=== PATIENT | female | born 1990 | race Caucasian/White ===

== ENCOUNTER 2016-08-27 11:56 | Inpatient (IN) | payer OTHER ==
--- NOTE | ~2016-08-27 | PN ---
Unit #: [id number] #: [id number] Patient: ORIN GIBSON [id number] [facility] [address] [place] [address] [id number] I MR#: [id number] NAME: ORIN GIBSON ROOM: [facility] Age: 25 Sex: F Admission Date: 08/27/2016 : 1990 Attending Physician: Shanita Knowles M.D. Admitting Physician: Shanita Knowles M.D. Primary Care Physician: Primary Care Physician Vale CHRISTIE NOTES DATE 08/28/2016 DISCUSSION Ms. Gibson is a 25-year-old white female with mood disorder, who was seen today and chart was reviewed and the case was discussed with the staff. She seemed to be lying in her bed and is anxious, withdrawn , feelings of hopelessness and suicidal ideation. Meanwhile, she has not shown any agitation or aggression. The staff reports that she has been very isolative and seclusive to herself and has not been interacting or socializing. MENTAL STATUS EXAMINATION Young white female, who was casually dressed with a fair personal hygiene, appears to be in no acute distress or discomfort. She was awake and alert on interaction with intact orientation. Her mood was anxious and depressed with a congruent affect. She reports some suicidal ideation, but denies any homicidal ideations. Her insight and judgment remain slightly impaired. TREATMENT PLAN 1. We will continue her on her current medications and treatment protocol and we will monitor her response and make further adjustments as needed. 2. We will continue to follow up. Dictated by... Shanita Knowles M.D. IAA/lucas TD: 08/29/2016 08:42 JOB #: [id number] Unit #: [id number] #: [id number] Patient: ORIN GIBSON PROGRESS NOTES Page 1 of 1 X Shanita Knowles MD PROGRESS NOTE
--- NOTE | ~2016-08-27 | PN ---
Unit #: [id number] #: [id number] Patient: ORIN GIBSON [id number] [facility] [address] [place] [address] [id number] I MR#: [id number] NAME: ORIN GIBSON ROOM: 82 Age: 25 Sex: F Admission Date: 08/27/2016 : 1990 Attending Physician: Shanita Knowles M.D. Admitting Physician: Shanita Knowles M.D. Primary Care Physician: Primary Care Physician Vale CHRISTIE NOTES DATE OF SERVICE: 08/29/2016 SUBJECTIVE Ms. Gibson is a 25-year-old white female, who was seen today and chart was reviewed and the case was discussed with the staff. She has been anxious and withdrawn, though has not shown any agitation or irritability, showing improvement in her mood and functioning. She has been taking medications and tolerating them fairly well with no reported side effects. MENTAL STATUS EXAMINATION Young white female, who was casually dressed with a fair personal hygiene, appears to be in no acute distress or discomfort. She was awake and alert on interaction with intact orientation. Her mood was anxious with a congruent affect. She denies any suicidal or homicidal ideations, also denies any auditory or visual hallucinations. Her insight and judgment remain slightly impaired. TREATMENT PLAN 1. We will continue her on her current medications and treatment protocol. We will monitor her response to medications and make further adjustments as needed. 2. We will continue to follow up. Dictated by... Nicole Chaudhry/kathy TD: 08/31/2016 07:36 JOB #: [id number] [facility] PROGRESS NOTES Page 1 of 1 X Shanita Knowles MD PROGRESS NOTE
--- NOTE | ~2016-08-27 | HP ---
Unit #: [id number] #: [id number] Patient: BEVERLY GIBSON [id number] [place] [address] [id number] I MR#: [id number] NAME: BEVERLY GIBSON ROOM: P182 Age: 25 Sex: F Admission Date: 08/27/2016 : 1990 Attending Physician: Shanita Knowles M.D. Admitting Physician: Shnaita Knowles M.D. Primary Care Physician: Primary Care Physician No HISTORY AND PHYSICAL HISTORY OF PRESENT ILLNESS Beverly is a 25 year old admitted to [facility] because of her polysubstance abuse which includes alcohol, benzodiazepines and crack cocaine. PAST MEDICAL HISTORY 1. Long history of polysubstance abuse. 2. History of withdrawal seizures. PAST SURGICAL HISTORY T and A. ALLERGIES Trileptal, codeine. SOCIAL HISTORY Smokes 1/2 pack per day. Drinks alcohol frequently and has a history of illicit drug use. FAMILY HISTORY Medically noncontributory. REVIEW OF SYSTEMS CONSTITUTIONAL: No fever or chills. HEENT: Denies any sore throat, ear pain or runny nose. CARDIOVASCULAR: Denies chest pain, irregular heart rhythm or palpitations. CHEST: Denies shortness of breath or cough. No hemoptysis. GASTROINTESTINAL: Denies nausea, vomiting, diarrhea or chronic constipation. ENDOCRINE: Denies history of increased thirst or urination. No recent significant weight loss or gain. GENITOURINARY: Denies dysuria, frequency, or hematuria. SKIN: Denies any rashes. HEMATOLOGIC: Denies history of increased bleeding or bruising. MUSCULOSKELETAL: Denies any hot, swollen joints. No generalized muscle pain. NEUROLOGIC: Denies problems with vision or speech. No frequent, severe headaches. No numbness, tingling or weakness in any extremities. Denies loss of bladder or bowel control. CURRENT MEDICATIONS 1. Latuda 60 mg daily. 2. Milk of Magnesia p.r.n. 3. Maalox p.r.n. Unit #: [id number] #: [id number] Patient: BEVERLY GIBSON 4. Tylenol p.r.n. 5. Nicotine patch 14 mg daily. PHYSICAL EXAMINATION GENERAL: Alert, well-nourished, in no apparent distress. VITAL SIGNS: Blood pressure 100/60, heart rate 80, respirations 16, temperature 98.6. WEIGHT: 140. HEIGHT: 5 feet 4 inches. SKIN: Warm and dry without rash or lesion. HEENT: Normocephalic. TMs not viewed. Oral and nasal passages clear. Conjunctivae clear. PERRLA. EOMs intact. NECK: Supple without lymphadenopathy or thyromegaly. HEART: Regular rate and rhythm without murmur. LUNGS: Clear. ABDOMEN: Soft, nontender. : Not done. EXTREMITIES: No evidence of cyanosis, clubbing or edema. Moves all without focal deficit. NEUROLOGICAL: Grossly within normal limits. Cranial Nerves: II: Visual frank are intact. III, IV AND : Extraocular movements are intact. Pupils are equal, round and reactive to light. V: Facial sensation is grossly normal. VII: Facial movements and expression are normal. VIII: Auditory acuity grossly intact. IX, X: Uvula is midline. Phonation is normal. XI: Patient shrugs shoulders and turns head normally. XII: Tongue protrudes in the midline. Sensory and Motor Function: Sensory and motor sensation is grossly normal. Motor: moves all extremities well. Coordination: Gait is normal. Deep Tendon Reflexes: Intact. IMPRESSION Psychiatric admission. RECOMMENDATIONS PSYCHIATRIC: Per psychiatrist. MEDICAL: See no contraindications to participate in facility's activities. MEDICAL PROGNOSIS Good. MEDICAL CONDITION Stable. Dictated by... Keli Blas P.A.-C. for Nicole Ayala/marilu TD: 08/27/2016 22:15 JOB #: [id number] Unit #: [id number] #: [id number] Patient: BEVERLY GIBSON HISTORY AND PHYSICAL Page 1 of 1 X Keli Blas HISTORY AND PHYSICAL
--- NOTE | ~2016-08-27 | DS ---
Unit #: [id number] #: [id number] Patient: [facility] [id number] [facility] [address] [place] [address] [id number] I MR#: [id number] NAME: ORIN GIBSON ROOM: [facility] Age: 25 Sex: F Admission Date: 08/27/2016 : 1990 Discharge Date: 08/30/2016 Attending Physician: Shanita Knowles M.D. Primary Care Physician: Primary Care Physician No DISCHARGE SUMMARY IDENTIFYING DATA Ms. Gibson is a 25-year-old single white female who was stepped up to the inpatient unit from the intensive outpatient treatment program. DISCHARGE DIAGNOSES Psychiatric: Bipolar disorder, most recent episode depressed, recurrent, moderate, without psychotic features; opioid dependence, moderate; methamphetamine abuse, moderate. Medical: None. Stressors: Moderate psychosocial stressors. HISTORY OF PRESENT ILLNESS Please see initial psychiatric evaluation for details. PAST PSYCHIATRIC HISTORY Please see initial psychiatric evaluation for details. PAST MEDICAL HISTORY Please see initial psychiatric evaluation for details. HOSPITAL COURSE The patient was [facility] and was oriented to the hospital environment. Routine p.r.n. medications were initiated, and she was started back on her home medications and detox protocol was initiated as well. She was taking the medications regularly and was tolerating them fairly well, and was able to show a decent therapeutic response and was willing to continue treatment on an outpatient basis and as such, it was decided that she will be discharged home and will continue treatment on an outpatient basis. DISCHARGE MEDICATIONS Latuda 80 mg in the evening for bipolar. DISCHARGE CONDITION Stable. PROGNOSIS Fair. Dictated by... Shanita Knowles M.D. IAA/modl Unit #: [id number] #: [id number] Patient: ORIN GIBSON TD: 08/30/2016 19:50 JOB #: [id number] DISCHARGE SUMMARY Page 1 of 1 X Shanita Knowles MD X DISCHARGE SUMMARY
--- NOTE | ~2016-08-27 | PA ---
Unit #: [id number] #: [id number] Patient: ORIN GIBSON [id number] [facility] [address] [place] [address] [id number] I MR#: [id number] NAME: ORIN GIBSON ROOM: P182 Age: 25 Sex: F Admission Date: 08/27/2016 : 1990 Date of Assessment: Attending Physician: Shanita Knowles M.D. Admitting Physician: Shanita Knowles M.D. PSYCHIATRIC ASSESSMENT DATE OF SERVICE 08/27/2016. IDENTIFYING DATA AND HISTORY OF PRESENT ILLNESS Ms. Gibson is a 25-year-old single white female, who was stepped up to the inpatient unit from the outpatient treatment program, where she was seen by me in the intensive outpatient program and was having acute stressors and apparently has relapsed and now was feeling guilt and remorse for not being able to get her daughter back and was crying and was hysterical and was making comments that her life is not worth living anymore and she has no purpose to live and that she is going to go kill herself and was refusing to contract for safety and was emotionally in a very fragile status and also had been struggling to get her prescription for Latuda, which has been according to her the only mood stabilizer that has worked for her depression. On Tuesday afternoon, the patient was seen to be a significant danger to self, having no support system outside, and was actively voicing suicidal ideations and was seen to be a significant danger to self and others and as such, a recommendation for inpatient level of care for safety and stabilization was made and the patient was stepped up to the inpatient unit. SUBSTANCE ABUSE HISTORY The patient has a history of alcohol, cannabis, and cocaine abuse and more recently, it appears that cocaine has been her drug of choice and she has relapsed on cocaine. PAST PSYCHIATRIC HISTORY The patient has had a history of multiple [facility], at [facility], at [facility], at [facility], and [facility] with long history of bipolar disorder and has been on Latuda, but has made claims that someone has apparently stolen her Latuda and she has been off her medication and as such has been decompensating. PAST MEDICAL HISTORY The patient's medical history is insignificant. ALLERGIES Codeine and oxcarbazepine. PERSONAL AND SOCIAL HISTORY A 25-year-old white female, who reports that she is single, unemployed, and currently has been living in a retirement house and [facility]CS has taken her Unit #: [id number] #: [id number] Patient: ORIN GIBSON daughter away and she reports having poor social support system. MENTAL STATUS EXAMINATION Young white female, who was casually dressed with fair personal hygiene, appears to be in no acute distress or discomfort. She was awake and alert on interaction with intact orientation to time, place, and person. Her mood was anxious and depressed with a congruent affect. Her speech was slow and restricted in content. Her thought processes were disorganized with some looseness of associations and suicidal ideations. Her insight and judgment remain significantly impaired. DIAGNOSTIC IMPRESSION Psychiatric: Bipolar disorder, most recent episode depressed, recurrent, moderate, without psychotic features; cocaine dependence, moderate; and cannabis abuse, mild. Medical: None. Stressors: Moderate psychosocial stressors. TREATMENT PLAN 1. The patient has presented with a history of mood disorder and substance abuse and has been decompensating and will need inpatient hospitalization for safety and stabilization. We will start her back on her home medications and we will adjust the medications and monitor response. 2. Supportive therapy was provided to the patient. 3. Safe, structured, and nourishing environment will be provided. ESTIMATED LENGTH OF STAY 5 to 7 days. ABILITY TO HELP SELF Limited. WILLINGNESS TO HELP SELF The patient appears to be willing to help self. STRENGTHS 1. Communicative. 2. Cooperative. PROBLEMS 1. Chronic dysphoric symptoms. 2. Poor social support system. DISCHARGE CRITERIA This will be contingent upon the patient's ability to show resolution of her depression and anxiety and her ability to stay safe to herself, particularly after discharge from the hospital. Dictated by... Nicole Chaudhry/kathy TD: 08/28/2016 11:45 JOB #: [id number] Unit #: [id number] #: [id number] Patient: ORIN GIBSON PSYCHIATRIC ASSESSMENT Page 1 of 1 X Shanita Knowles MD X PSYCHIATRIC ASSESSMENT
[2016-08-28 12:39] LABS: AMPHETAMINE NEG (NEG); BARBITURATES NEG (NEG); BENZODIAZEPINES NEG (NEG); COCAINE POS (NEG); MARIJUANA POS (NEG); OPIATES NEG (NEG); TRICYCLIC ANTIDEPRESSANTS NEG (NEG); U METHADONE NEG (NEG)
== END 2016-08-30 10:30 | disposition home or self-care (01) | DRG 885 ==
LOC: P1E 11:56
PROVIDERS: Psychiatry & Neurology Psychiatry
DX: F31.32 Bipolar disorder, current episode depressed, moderate (principal); F14.20 Cocaine dependence, uncomplicated; F12.10 Cannabis abuse, uncomplicated; F17.200 Nicotine dependence, unspecified, uncomplicated; Z88.5 Allergy status to narcotic agent; Z88.8 Allergy status to other drugs, medicaments and biological substances; F41.9 Anxiety disorder, unspecified
CPT/HCPCS: 80307; 90688

== ENCOUNTER 2016-12-10 19:05 | Inpatient (IN) | payer OTHER ==
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
--- NOTE | ~2016-12-10 | PN ---
Unit #: [id number] #: [id number] Patient: ORIN GIBSON [id number] [facility] [address] [place] [address] [id number] MR#: [id number] NAME: ORIN GIBSON ROOM: P258 Age: 26 Sex: F Admission Date: 12/10/2016 : 1990 Attending Physician: Shanita Knowles M.D. Admitting Physician: Shanita Knowles M.D. Primary Care Physician: Primary Care Physician Vale CHRISTIE NOTES DATE OF SERVICE 12/12/2016 DISCUSSION Ms. Gibson is a 26-year-old white female who was seen today. Chart was reviewed and case was discussed with the staff. She has been anxious, withdrawn, and rather seclusive to herself. Meanwhile, she has been cooperative with the treatment recommendations and has been taking the medications and tolerating them fairly well. MENTAL STATUS EXAMINATION Young white female who is casually dressed with fair personal hygiene, appears to be in no acute distress or discomfort. She was awake and alert with intact orientation. Her mood is anxious with congruent affect. She denies any suicidal or homicidal ideations. Her insight and judgment remain slightly impaired. TREATMENT PLAN 1. We will continue her on her current medications and treatment protocol. We will monitor her response and make further adjustments as needed. 2. We will continue to follow up. Dictated by... Shanita Knowles M.D. IAA/bzg TD: 12/13/2016 11:31 JOB #: [id number] [facility] PROGRESS NOTES Page 1 of 1 X Shanita Knowles MD PROGRESS NOTE
--- NOTE | ~2016-12-10 | PN ---
Unit #: [id number] #: [id number] Patient: ORIN GIBSON [id number] [facility] [address] [place] [address] [id number] I MR#: [id number] NAME: ORIN GIBSON ROOM: P258 Age: 26 Sex: F Admission Date: 12/10/2016 : 1990 Attending Physician: Shanita Knowles M.D. Admitting Physician: Shanita Knowles M.D. Primary Care Physician: Primary Care Physician Vale DILLON PROGRESS NOTES DATE 12/13/2016 DISCUSSION Ms. Gibson is a 26-year-old white female who was seen today and chart was reviewed and case was discussed with the staff. She has been doing fairly well with no agitation, irritability and has been cooperative with treatment recommendations as she has been taking the medications and tolerating them fairly well with no reported side effects. MENTAL STATUS EXAMINATION Young white female who was casually dressed with fair personal hygiene, appears to be in no acute distress or discomfort. She was awake and alert on interaction with intact orientation. Her mood was anxious with congruent affect. She denies any suicidal or homicidal ideations. Her insight and judgement remains slightly impaired. TREATMENT PLAN 1. We will continue her on her current medications and treatment protocol. We will monitor her response to the medication and make further adjustments as needed. 2. We will continue to follow up. Dictated by... Nicole Chaudhry/dioni TD: 12/14/2016 04:50 JOB #: [id number] Unit #: [id number] #: [id number] Patient: ORIN GIBSON PROGRESS NOTES Page 1 of 1 X Shanita Knowles MD PROGRESS NOTE
--- NOTE | ~2016-12-10 | DS ---
Unit #: [id number] #: [id number] Patient: [facility] [id number] [facility] [address] [place] [address] [id number] MR#: [id number] NAME: ORIN GIBSON ROOM: P258 Age: 26 Sex: F Admission Date: 12/10/2016 : 1990 Discharge Date: 12/14/2016 Attending Physician: Shaniat Knowles M.D. Primary Care Physician: Primary Care Physician No DISCHARGE SUMMARY IDENTIFYING DATA Ms. Gibson is a 26-year-old single white female, who is a resident of [place], [place], and is known to us from previous encounter, was self-referred to the hospital. DISCHARGE DIAGNOSES Psychiatric: Schizoaffective disorder, bipolar type, most recent episode depressed, recurrent, moderate, with psychosis; cannabis abuse, moderate; methamphetamine abuse, moderate; alcohol abuse, moderate. Medical: None. Stressors: Mild psychosocial stressors. HISTORY OF PRESENT ILLNESS Please see initial psychiatric evaluation for details. PAST PSYCHIATRIC HISTORY Please see initial psychiatric evaluation for details. PAST MEDICAL HISTORY Please see initial psychiatric evaluation for details. HOSPITAL COURSE The patient was admitted to the adult psychiatric unit at [facility] and was oriented to the hospital environment. Routine p.r.n. medications were initiated, and she was started back on her home medications including her Latuda and was closely monitored. She was taking the medications regularly and was tolerating them fairly well and was able to show a decent and therapeutic response with improvement in depression and psychosis and was denying any suicidal ideations, intent, or plan and was willing to continue treatment on an outpatient basis and as such, it was decided that she will be discharged home and will step down to the outpatient treatment program with ongoing outpatient psychiatric treatment. DISCHARGE CONDITION Stable. PROGNOSIS Fair. Dictated by... Shanita Knowles M.D. Unit #: [id number] #: [id number] Patient: ORIN GIBSON IAA/modl TD: 12/15/2016 01:37 JOB #: [id number] DISCHARGE SUMMARY Page 1 of 1 X Shanita Knowles MD X DISCHARGE SUMMARY
--- NOTE | ~2016-12-10 | HP ---
Unit #: [id number] #: [id number] Patient: ORIN GIBSON [id number] [place] [address] [id number] MR#: [id number] NAME: ORIN GIBSON ROOM: P258 Age: 26 Sex: F Admission Date: 12/10/2016 : 1990 Attending Physician: Shanita Knowles M.D. Admitting Physician: Shanita Knowles M.D. Primary Care Physician: Primary Care Physician No HISTORY AND PHYSICAL HISTORY OF PRESENT ILLNESS The patient is a 26-year-old female admitted to [address] [place] [address] on 12/10/2016 for suicidal ideations. PAST MEDICAL HISTORY Withdrawal seizures. PAST SURGICAL HISTORY Tonsils and adenoids. SOCIAL HISTORY She is disabled. She lives alone. She smokes one pack of cigarettes daily, uses marijuana on a daily basis and uses methamphetamine about one time per month. FAMILY MEDICAL HISTORY Noncontributory. ALLERGIES Codeine and oxcarbazepine CURRENT MEDICATIONS Latuda REVIEW OF SYSTEMS CONSTITUTIONAL: No fever or chills. HEENT: Denies any sore throat, ear pain or runny nose. CARDIOVASCULAR: Denies chest pain, irregular heart rhythm or palpitations. CHEST: Denies shortness of breath or cough. No hemoptysis. GASTROINTESTINAL: Denies nausea, vomiting, diarrhea or chronic constipation. ENDOCRINE: Denies history of increased thirst or urination. No recent significant weight loss or gain. GENITOURINARY: Denies dysuria, frequency, or hematuria. SKIN: Denies any rashes. HEMATOLOGIC: Denies history of increased bleeding or bruising. MUSCULOSKELETAL: Denies any hot, swollen joints. No generalized muscle pain. NEUROLOGIC: Denies problems with vision or speech. No frequent, severe headaches. No numbness, tingling or weakness in any extremities. Denies loss of bladder or bowel control. PHYSICAL EXAM Unit #: [id number] #: [id number] Patient: ORIN GIBSON GENERAL: She is awake, alert and oriented in no acute distress. VITAL SIGNS: Temperature 98.5, heart rate 68, respiration 20, blood pressure 98/67. HEIGHT: 5'4". WEIGHT: 176 pounds. SKIN: Warm and dry without rash or lesion. HEENT: Normocephalic. TMs not viewed. Oral and nasal passages clear. Conjunctivae clear. PERRLA. EOMs intact. NECK: Supple without lymphadenopathy or thyromegaly. HEART: Regular rate and rhythm without murmur. LUNGS: Clear. ABDOMEN: Soft, nontender. : Not done. EXTREMITIES: No evidence of cyanosis, clubbing or edema. Moves all without focal deficit. NEUROLOGICAL: Grossly within normal limits. Cranial Nerves: II: Visual frank are intact. III, IV AND : Extraocular movements are intact. Pupils are equal, round and reactive to light. V: Facial sensation is grossly normal. VII: Facial movements and expression are normal. VIII: Auditory acuity grossly intact. IX, X: Uvula is midline. Phonation is normal. XI: Patient shrugs shoulders and turns head normally. XII: Tongue protrudes in the midline. Sensory and Motor Function: Sensory and motor sensation is grossly normal. Motor: moves all extremities well. IMPRESSION 1. Psychiatric admission. 2. History of withdrawal seizures. RECOMMENDATIONS Psychiatric per psychiatrist. MEDICAL: No contraindication to participate in facility activities. MEDICAL PROGNOSIS Good. MEDICAL CONDITION Stable. Dictated by... Nito Penaloza/dioni TD: 12/13/2016 04:49 JOB #: [id number] Unit #: [id number] #: [id number] Patient: ORIN GIBSON HISTORY AND PHYSICAL Page 1 of 1 X EL SHIN APRN HISTORY AND PHYSICAL
[2016-12-11 11:29] LABS: BASOPHIL% 0.6 % (0-2.5); EOSINOPHIL# 0.2 X10e3 (0-0.7); EOSINOPHIL% 2.4 % (0.0-7.0); HEMATOCRIT 38.4 % (35.0-45.0); HEMOGLOBIN 13.1 gm/dL (12.0-16.0); LYMPHOCYTE# 2.2 X10e3 (1.0-3.5); LYMPHOCYTE% 29.9 % (17.0-45.0); MEAN CELL VOLUME 92.8 FL (83-96); MEAN CORPUSCULAR HEMOGLOBIN 31.6 PG (28-34); MEAN CORPUSCULAR HGB CONC 34.1 g/dL (30-36); MEAN PLATELET VOLUME 9.3 FL (6.5-11.5); MONOCYTE# 0.5 X10e3 (0-1.0); MONOCYTE% 7.4 % (3.0-12.0); NEUTROPHIL# 4.4 X10e3 (1.5-7.1); NEUTROPHIL% 59.7 % (40-75); PLATELET COUNT 202 X10e3 (140-420); RED BLOOD COUNT 4.14 X10e (3.90-5.30); WHITE BLOOD COUNT 7.3 X10e3 (4.0-10.5)
[2016-12-11 11:30] LABS: DIFF IND NO
[2016-12-11 11:47] LABS: URINE APPEARANCE CLOUDY; URINE BILIRUBIN NEG (NEG); URINE BLOOD NEG (NEG); URINE COLOR YELLOW; URINE GLUCOSE NEG (NEG); URINE KETONE NEG (NEG); URINE LEUKOCYTE ESTERASE 2+ (NEG); URINE NITRATE NEG (NEG); URINE PROTEIN NEG (NEG); URINE SPECIFIC GRAVITY 1.016 (1.003-1.035)
[2016-12-11 11:50] LABS: ALBUMIN SERUM 3.6 g/dL (3.5-5.0); BILIRUBIN,TOTAL 0.6 mg/dL (0.2-2.0); BUN/CREATININE RATIO 12.85; CALCIUM SERUM 8.7 mg/dL (8.4-10.2); CREATININE SERUM 0.7 mg/dL (0.6-1.4); GLOM FILT RATE Estimated 119.6 mL/min (>60); POTASSIUM 4.1 mmol/L (3.5-5.1)
[2016-12-11 11:51] LABS: URBCS1 AUWI 0-2 /[HPF] (0-2); URINE BACTERIA AUWI 1+ (NEGATIVE); URINE SQUAMOUS EPITHELIAL CELL OCC /[HPF]
[2016-12-11 12:14] LABS: AMPHETAMINE NEG (NEG); BARBITURATES NEG (NEG); BENZODIAZEPINES NEG (NEG); COCAINE NEG (NEG); MARIJUANA POS (NEG); OPIATES NEG (NEG); TRICYCLIC ANTIDEPRESSANTS NEG (NEG); U METHADONE NEG (NEG)
== END 2016-12-14 11:30 | disposition home or self-care (01) | DRG 885 ==
LOC: P2L 20:00
PROVIDERS: Psychiatry & Neurology Psychiatry
DX: F25.9 Schizoaffective disorder, unspecified (principal); F15.10 Other stimulant abuse, uncomplicated; F12.10 Cannabis abuse, uncomplicated; F10.10 Alcohol abuse, uncomplicated; F17.210 Nicotine dependence, cigarettes, uncomplicated
CPT/HCPCS: 80053; 80307; 81003; 84703; 85025